=== PATIENT | female | born 1990 | race Caucasian/White ===

== ENCOUNTER 2016-08-12 12:35 | Emergency (ER) | payer BC ==
[~2016-08-12 12:35] MED LIST: DENIES HOME MEDS
== END 2016-08-12 12:46 | disposition home or self-care (01) ==
LOC: ER 12:35
DX: S39.012A Strain of muscle, fascia and tendon of lower back, initial encounter (principal); X58.XXXA Exposure to other specified factors, initial encounter
CPT/HCPCS: 72100; 96372; 99283; J1170; J2800; J2930